=== PATIENT | female | born 1955 | race Hispanic/Latino ===

== ENCOUNTER 2017-03-06 07:39 | Day surgery (SDC) | payer OTHER ==
[2017-03-06 08:14] VITALS: BMI 38.6
[2017-03-06] MEDS ORDERED: Lidocaine 2% Inj (20ml) IJ ONE (08:30)
[2017-03-06] MEDS ORDERED: Sodium Bicarbonate 4.2% Inj (Infant) IVP ONE (08:30)
[2017-03-06] MEDS ORDERED: Sodium Bicarbonate 4.2% Inj (Infant) ONE (09:23)
[2017-03-06] MEDS ORDERED: Lidocaine 2% w Epi 1:100,000 Inj IJ ONE (09:23)
[2017-03-06] MEDS ORDERED: Lidocaine 1% Inj (20ml) ONE (09:23)
[2017-03-06 10:07] VITALS: O2SAT 99
[2017-03-06 10:48] VITALS: BP 134/82; PULSE 78; RESP 18; TEMP 98.7
--- NOTE | 2017-03-06 10:53 | OP ---
PROCEDURE DATE: 03/06/2017 PREOPERATIVE DIAGNOSIS: Mass of the left mons pubis. POSTOPERATIVE DIAGNOSIS: Clinically hidradenitis, awaiting pathology. PROCEDURE: Wide excision of lesion of the left mons. SURGEON: Shane Alford MD. TYPE OF ANESTHESIA: 1% lidocaine with epinephrine buffered by sodium bicarb. OPERATIVE FINDINGS: A raised lesion of the skin and also an indurated area next to it consistent with hidradenitis. DESCRIPTION OF PROCEDURE: After obtaining informed consent, the patient was taken to the operating room. After a time-out obtained, the left mons was prepped and draped in the usual manner. After adequate infiltration with 1% lidocaine with epinephrine buffered by sodium bicarb, a semicircular incision was made to encompass the lesion and the induration distal to that. The incision was approximately a 4 cm incision x 2 in a semicircular fashion. This was carried down through the subcu tissue to excise the skin lesion and also the indurated area. At this point, making sure that hemostasis was excellent with hemocautery, the area was approximated with a single layer of 5 nylon. A dressing was applied. The patient tolerated the procedure very well and was transferred to the recovery room in good general status. Shane Alford MD
== END 2017-03-06 10:15 | disposition home or self-care (01) ==
LOC: H.OPSURG 07:39
PROVIDERS: ATTEND Surgery
DX: L73.2 Hidradenitis suppurativa (principal)